=== PATIENT | male | born 1950 | race Two or more races ===

== ENCOUNTER 2019-09-13 11:49 | Outpatient (CLI) | payer OTHER | END 2019-09-13 11:51 | disposition home or self-care (01) | LOC: RAD 11:49 | PROVIDERS: ATTEND Internal Medicine | DX: R06.2 Wheezing (principal) ==

== ENCOUNTER 2019-11-27 07:37 | Outpatient (CLI) | payer OTHER | END 2019-11-27 07:43 | disposition home or self-care (01) | LOC: RAD 07:37 | PROVIDERS: ATTEND Ophthalmology | DX: R91.8 Other nonspecific abnormal finding of lung field (principal) ==

== ENCOUNTER 2020-06-18 07:40 | Outpatient (CLI) | payer OTHER | END 2020-06-18 07:43 | disposition home or self-care (01) | LOC: RAD 07:40 | PROVIDERS: ATTEND Family Medicine | DX: R07.89 Other chest pain (principal); I10 Essential (primary) hypertension ==

== ENCOUNTER 2024-04-10 10:08 | Outpatient (CLI) | payer OTHER | END 2024-04-10 10:12 | disposition home or self-care (01) | LOC: TOM 10:08 | PROVIDERS: ATTEND Student in an Organized Health Care Education/Training Program | DX: K43.2 Incisional hernia without obstruction or gangrene (principal) ==

== ENCOUNTER 2024-05-10 05:30 | Day surgery (SDC) | payer OTHER ==
[2024-05-08 09:09] VITALS: BP 150/90
[2024-05-08 09:41] LABS: URINE APPEARANCE Clear; URINE BILIRRUBIN Negative (NEGATIVE); URINE BLOOD Negative; URINE COLOR Yellow; URINE GLUCOSE Negative (NEGATIVE); URINE KETONE Negative (NEGATIVE); URINE LEUKOCYTE Negative; URINE NITRATE Negative; URINE PROTEIN Negative (NEGATIVE); URINE UROBILINOGEN 0.2 E.U./dl
[2024-05-08 09:42] LABS: HEMATOCRIT 43.5 % (39.0-48.0); MEAN CELL VOLUME 102.5 fL (80.0-100.00); MEAN CORPUSCULAR HEMOGLOBIN 35.4 pg (27.00-32.0); MEAN CORPUSCULAR HGB CONC 34.6 g/dl (32.0-36.0); PLATELET COUNT 194 K/uL (150-450); RED BLOOD COUNT 4.24 M/uL (4.00-6.00)
[2024-05-08 09:45] LABS: URINE RBC 7.2 uL (0.0-20.8)
[2024-05-08 10:00] LABS: INR 1.06; PARTIAL THROMBOPLASTIN TIME 26.4 SECONDS (22.0-34.0); PROTHROMBIN TIME 11.5 SECONDS (9.0-11.5)
[2024-05-08 10:02] LABS: URINE BACTERIA 1.2 uL (0.0-1933); URINE EPITHELIAL CELLS 0.3 uL (0.0-38.8); URINE WBC 0.4 uL (0.0-23.2)
[2024-05-08 10:54] LABS: ALBUMIN 4.3 gm/dL (3.4-5.0); BILIRUBIN TOTAL 1.08 mg/dL (0.3-1.2); CALCIUM 9.4 mg/dL (8.5-10.1); CREATININE SERUM 0.72 mg/dL (0.70-1.30); GFR 107.31; POTASSIUM 4.97 mEq/L (3.5-5.1); TOTAL PROTEIN 7.3 gm/dL (6.4-8.2)
[~2024-05-10] VITALS: Ht 175.3 cm; Wt 77.1 kg
[2024-05-10] MEDS ORDERED: LIDOCAINE HCL 1% 10ML VIAL IJ SCH (12:15)
[2024-05-10] MEDS ORDERED: CEFAZOLIN SODIUM 1,000 MG VIAL IV SCH (12:15)
[2024-05-10] MEDS ORDERED: BUPIVACAINE HCL/PF 0.25% 30ML VIAL InF SCH (12:15)
[2024-05-10] MEDS ORDERED: ENALAPRILAT DIHYDRATE 1.25 MG/ML VIAL IV ONE (14:05)
[2024-05-10] MEDS ORDERED: MORPHINE SULFATE 4 MG/ML VIAL IV ONE (15:30)
== END 2024-05-10 18:20 | disposition home or self-care (01) ==
LOC: CIR.AMB 05:30
PROVIDERS: ATTEND Student in an Organized Health Care Education/Training Program
DX: K43.9 Ventral hernia without obstruction or gangrene (principal); M19.90 Unspecified osteoarthritis, unspecified site
CPT/HCPCS: 49593; C1781